=== PATIENT | female | born 1980 | race Caucasian/White ===

== ENCOUNTER 2021-07-24 17:30 | Emergency (ER) | payer OTHER, SELFPAY ==
[2021-07-24 17:45] VITALS: BP 157/93; PULSE 120; RESP 18; TEMP 36.6; O2SAT 100
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
[2021-07-24 18:00] VITALS: PULSE 100
== END 2021-07-24 18:15 | disposition home or self-care (01) ==
PROVIDERS: Emergency Provider Nurse Practitioner Family; PCP Family Medicine
DX: S05.02XA Injury of conjunctiva and corneal abrasion without foreign body, left eye, initial encounter (principal); Y04.2XXA Assault by strike against or bumped into by another person, initial encounter; Y99.0 Civilian activity done for income or pay; I10 Essential (primary) hypertension; G62.9 Polyneuropathy, unspecified
CPT/HCPCS: 99203; A9270; G0463

== ENCOUNTER 2022-08-03 17:31 | Emergency (ER) | payer OTHER, SELFPAY ==
[2022-08-03 17:54] VITALS: BP 180/97; PULSE 103; RESP 18; TEMP 36.6; O2SAT 99
--- NOTE | 2022-08-03 19:25 | ED.GENADULT ---
HPI - General Adult General Chief complaint: Back Pain/Injury Stated complaint: Back Pain Source: patient Mode of arrival: ambulatory Limitations: no limitations History of Present Illness HPI narrative: Patient presents for evaluation of right lower back pain for last 2 days. She cannot identify any precipitating cause or injury. She has a history of chronic back pain related to sciatica. That pain starts in her right buttock and shoots down the posterior aspect of the right leg. She describes the pain as sharp. She has an MRI scheduled for this coming Tuesday. She states that the pain she is currently experiencing is different from her chronic pain. She describes a current pain as dull. No radicular component. No abdominal pain. She has had similar symptoms in the past bilaterally with a urinary tract infection. During that episode she had abdominal pain, urinary frequency and hesitancy. She denies any abdominal pain, urinary hesitancy or frequency at the present time. She denies any fever, chills, nausea, vomiting. No saddle anesthesia. No bladder/bowel incontinence. She tried taking tramadol for symptoms without considerable improvement thereafter. Related Data Home Medications Medication Instructions Recorded Confirmed amlodipine 10 mg tablet 10 mg PO DAILY 07/24/21 08/03/22 cyclobenzaprine 10 mg tablet 10 mg PO TID 07/24/21 08/03/22 diclofenac sodium 75 mg 75 mg PO BID 08/03/22 08/03/22 tablet,delayed release fluticasone propionate 50 intranasal 08/03/22 mcg/actuation nasal spray,suspension gabapentin 300 mg capsule mg 08/03/22 montelukast 10 mg tablet 10 mg PO DAILY 08/03/22 08/03/22 tramadol 50 mg tablet 50 mg PO TID PRN Pain 08/03/22 08/03/22 Allergies Allergy/AdvReac Type Severity Reaction Status Date / Time cephalexin Allergy Unknown NAUSEA Verified 08/03/22 17:56 naproxen AdvReac Nausea and Verified 08/03/22 17:56 Vomiting sulfamethoxazole AdvReac Nausea and Verified 08/03/22 17:56 [From Bactrim] Vomiting trimethoprim [From Bactrim] AdvReac Nausea and Verified 08/03/22 17:56 Vomiting Review of Systems Review of Systems: CONSTITUTIONAL: Denies fever, chills, or sweats. EYES: Denies visual changes, redness, or discharge. ENT: Denies rhinorrhea, congestion, sore throat, or otalgia. CARDIOVASCULAR: Denies chest pain, palpitations, or edema. RESPIRATORY: Denies cough or dyspnea. GASTROINTESTINAL: Denies abdominal pain, nausea, vomiting, or diarrhea. GENITOURINARY: Denies dysuria or hematuria. SKIN: Denies rash or itching. MUSCULOSKELETAL: Reports right lower back pain. NEUROLOGIC: Denies headache, numbness, dizziness, or weakness. PSYCHIATRIC: Denies anxiety or depression. PMFSH Past Medical History Medical History Chronic low back pain Sciatica Surgical History Surgical History No pertinent past surgical history Family History Family History Mother Family history non-contributory Social History Social History Substance use: never Living arrangements: alone Gender identity (if verbalized by the patient): Female Spiritual care concerns: No Exam Narrative: GENERAL: Well-appearing, well-nourished. Visibly uncomfortable but in no apparent distress HEAD: Normocephalic, atraumatic. EYES: PERRLA and EOMI. ENT: Nares clear, no rhinorrhea or epistaxis. Mucous membranes moist. Oropharynx without tonsillar hypertrophy exudate or other lesions. Bilateral TMs pearly alicea nonbulging NECK: Supple. No adenopathy or masses. No carotid bruits or JVD CHEST: Clear to auscultation. No respiratory distress. No wheezes rales or rhonchi HEART: Regular rate and rhythm. No murmur heard. Normal peripheral pulses. ABDOMEN: Soft, nonte
== END 2022-08-03 19:31 | disposition home or self-care (01) ==
PROVIDERS: Emergency Provider Nurse Practitioner; PCP Family Medicine
DX: M54.50 Low back pain, unspecified (principal); N39.0 Urinary tract infection, site not specified
CPT/HCPCS: 81003; 87086; 87088; 99213; G0463